=== PATIENT | female | born 1965 | race Caucasian/White ===

== ENCOUNTER 2020-07-28 11:14 | Emergency (ER) | payer OTHER ==
[2020-07-28] MEDS ORDERED: Ondansetron 4 MG/2 ML SDV IVPUSH ONE (11:56)
[2020-07-28] MEDS ORDERED: Ketorolac 30 MG/ML SDV IVPUSH ONE (11:56)
[2020-07-28] MEDS ORDERED: Pantoprazole 40 MG Vial IVPUSH ONE (11:58)
[2020-07-28] MEDS ORDERED: Sodium Chloride 0.9% 1,000 ML IV SCH ×2 (12:00→13:00)
--- NOTE | 2020-07-28 13:03 | EDM.PDOC ---
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, missed work yesterday, off today lives with who is working today and is not ill here with neighbor 2d ago pt awoke at 4a with n/v, was so lightheaded she crawled to the bathroom has continued with n/v/lightheaded, not had anything to eat or drink in past 2d had loose stools for 1d, then only one formed BM today, does not know the color as she has been too dizzy to look, she crawled to bathroom again today denies pain PSH: c/s no prior sxs, no prior GI problems drinks 4 beers/day, no THC, no street drugs - Related Data Allergies Allergy/AdvReac Type Severity Reaction Status Date / Time No Known Allergies Allergy Verified 07/28/20 11:33 Home Meds: Home Meds Ondansetron [Ondansetron ODT] 4 mg PO Q4H PRN #8 tab.rapdis 07/28/20 [Rx] Past Medical History Cardiovascular History: Reports: High Cholesterol, Hypertension [employer]ERSON History: Reports: Other [employer]ERSON History: Musculoskeletal History: Reports: Gout Oncologic (Cancer) History: Reports: Other (See Below) Other Oncologic History: tongue Dermatologic History: Reports: Other (See Below) Other Dermatologic History: ingrown hairs - Infectious Disease History Infectious Disease History: Reports: Chicken Pox, Measles, Mumps - Past Surgical History GI Surgical History: Reports: Colonoscopy, EGD Oncologic Surgical History: Reports: Other (See Below) Other Oncologic Surgeries/Procedures: 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 Denies: Fever, Chills, Night Sweats, Diaphoresis HEENT: Reports: No Symptoms Respiratory: Reports: No Symptoms Cardiovascular: Reports: No Symptoms Endocrine: Reports: No Symptoms GI/Abdominal: Reports: Diarrhea, Nausea, Vomiting, Other (says she is hungry now). Denies: Abdominal Pain : Reports: No Symptoms Musculoskeletal: Reports: No Symptoms Skin: Reports: No Symptoms Neurological: Reports: No Symptoms Psychiatric: Reports: No Symptoms Hematologic/Lymphatic: Reports: No Symptoms Immunologic: Reports: No Symptoms ED EXAM, GI/ABD - Physical Exam Exam: See Below Exam Limited By: No Limitations General Appearance: Alert, WD/WN, No Apparent Distress Ears: Normal Canal Nose: Normal Inspection, Normal Mucosa, No Blood Throat/Mouth: Normal Inspection, Normal Lips, Normal Teeth, Normal Voice Head: Atraumatic, Normocephalic Neck: Normal Inspection, Supple, Non-Tender, Full Range of Motion Respiratory/Chest: No Respiratory Distress, Lungs Clear Cardiovascular: Regular Rate, Rhythm, No Edema, No Murmur GI/Abdominal Exam: Normal Bowel Sounds, Soft, Non-Tender, No Distention Back Exam: Normal Inspection Extremities: Normal Inspection, Normal Range of Motion, Non-Tender, No Pedal Edema, Other (skin turgor minimally dec'd) Neurological: Alert, Oriented, CN II-XII Intact, Normal Cognition, Normal Gait, No Motor/Sensory Deficits Psychiatric: Normal Affect, Normal Mood Skin Exam: Warm, Dry, Intact, Normal Color, No Rash Lymphatic: No Adenopathy Course - Vital Signs Last Recorded V/S: Last Vital Signs Temp 36.8 C 07/28/20 11:14 Pulse 57 L 07/28/20 11:14 Resp 18 07/28/20 11:14 BP 160/93 H 07/28/20 11:14 Pulse Ox 100 07/28/20 11:14 - Orders/Labs/Meds Orders: Active Orders 24 hr Category Date Time Status EKG Documentation Completion [RC] ASDIRECTED Care 07/28/20 11:57 Ordered Orthostatic Vital Signs [RC] ASDIRECTED Care 07/28/20 12:54 Ordered Sodium Chloride 0.9% [Normal Saline] 1,000 ml Med 07/28/20 12:00 Ordered IV ASDIRECTED Sodium Chloride 0.9% [Normal Saline] 1,000 ml Med 07/28/20 13:00 Ordered IV ASDIRECTED EKG 12 Lead [EK] Routine Ther 07/28/20 11:56 Ordered Medication Orders Sodium Chloride (Normal Saline) 1,000 mls @ 999 mls/hr IV ASDIRECTED JONATHAN Last Admin: 07/28/20 12:00 Dose: 999 mls/hr Documented by: TAMMY Sodium Chloride (Normal Saline) 1,000 mls @ 999 mls/hr IV ASDIRECTED JONATHAN Last Admin: 07/28/20 13:03 Dose: 999 mls/hr Documented by: TAMMY Labs: Laboratory Tests 07/28/20 07/28/20 07/28/20 Range/Units 11:40 11:40 11:40 WBC 9.6 (3.0-10.3) x10-3/uL RBC 4.12 (3.60-5.20) x10(6)uL Hgb 13.3 (11.4-15.5) g/dL Hct 39.9 (34.2-48.2) % MCV 96.8 (76.7-100.5) fL MCH 32.4 (23.9-33.9) pg MCHC 33.4 (31.9-34.8) g/dL RDW 12.6 (12.3-16.5) % Plt Count 325 (151-488) x10(3)uL MPV 7.8 (7.1-12.4) fL Neut % (Auto) 60.8 (30.8-76.2) % Lymph % (Auto) 32.0 (18.4-52.1) % [place] % (Auto) 5.4 (4.4-15.7) % Eos % (Auto) 0.7 (0.6-8.1) % Baso % (Auto) 1.1 (0.2-1.5) % Neut # (Auto) 5.8 (1.5-6.3) x10-3/uL Lymph # (Auto) 3.1 (1.0-4.4) x10-3/uL [place] # (Auto) 0.5 (0.3-1.0) x10-3/uL Eos # (Auto) 0.1 (0.0-0.8) x10-3/uL Baso # (Auto) 0.1 (0.0-0.1) x10-3/uL Sodium 139 (135-145) mmol/L Potassium 3.6 (3.5-5.3) mmol/L Chloride 98 L (100-110) mmol/L Carbon Dioxide 29 (21-32) mmol/L BUN 6 L (7-18) mg/dL Creatinine 0.6 (0.55-1.02) mg/dL Est Cr Clr Drug Dosing 84.78 mL/min Estimated GFR (MDRD) > 60 (>60) BUN/Creatinine Ratio 10.0 (9-20) Glucose 102 (80-116) mg/dL Calcium 9.6 (8.6-10.2) mg/dL Magnesium 2.0 (1.8-2.5) mg/dL Total Bilirubin 0.5 (0.1-1.3) mg/dL AST 19 (5-25) IU/L ALT 28 (12-36) U/L Alkaline Phosphatase 92 (56-112) IU/L Troponin I 5.9 (4.0-60.3) pg/mL C-Reactive Protein 0.6 (0.5-0.9) mg/dL Total Protein 7.2 (6.0-8.0) g/dL Albumin 3.9 (3.5-5.2) g/dL Globulin 3.3 g/dL Albumin/Globulin Ratio 1.2 Lipase 101 (73-393) U/L Urine Color (YELLOW) Urine Appearance (CLEAR) Urine pH (5.0-6.5) Ur Specific [place] (1.010-1.025) Urine Protein (NEGATIVE) mg/dL Urine Glucose (UA) (NORMAL) mg/dL Urine Ketones (NEGATIVE) mg/dL Urine Occult Blood (NEGATIVE) Urine Nitrite (NEGATIVE) Urine Bilirubin (NEGATIVE) Urine Urobilinogen (NEGATIVE) mg/dL Ur Leukocyte Esterase (NEGATIVE) Urine WBC (0-5) Ur Squamous Epith Cells (NS,R,O) Urine Bacteria (NS) 07/28/20 Range/Units 13:48 WBC (3.0-10.3) x10-3/uL RBC (3.60-5.20) x10(6)uL Hgb (11.4-15.5) g/dL Hct (34.2-48.2) % MCV (76.7-100.5) fL MCH (23.9-33.9) pg MCHC (31.9-34.8) g/dL RDW (12.3-16.5) % Plt Count (151-488) x10(3)uL MPV (7.1-12.4) fL Neut % (Auto) (30.8-76.2) % Lymph % (Auto) (18.4-52.1) % [place] % (Auto) (4.4-15.7) % Eos % (Auto) (0.6-8.1) % Baso % (Auto) (0.2-1.5) % Neut # (Auto) (1.5-6.3) x10-3/uL Lymph # (Auto) (1.0-4.4) x10-3/uL [place] # (Auto) (0.3-1.0) x10-3/uL Eos # (Auto) (0.0-0.8) x10-3/uL Baso # (Auto) (0.0-0.1) x10-3/uL Sodium (135-145) mmol/L Potassium (3.5-5.3) mmol/L Chloride (100-110) mmol/L Carbon Dioxide (21-32) mmol/L BUN (7-18) mg/dL Creatinine (0.55-1.02) mg/dL Est Cr Clr Drug Dosing mL/min Estimated GFR (MDRD) (>60) BUN/Creatinine Ratio (9-20) Glucose (80-116) mg/dL Calcium (8.6-10.2) mg/dL Magnesium (1.8-2.5) mg/dL Total Bilirubin (0.1-1.3) mg/dL AST (5-25) IU/L ALT (12-36) U/L Alkaline Phosphatase (56-112) IU/L Troponin I (4.0-60.3) pg/mL C-Reactive Protein (0.5-0.9) mg/dL Total Protein (6.0-8.0) g/dL Albumin (3.5-5.2) g/dL Globulin g/dL Albumin/Globulin Ratio Lipase (73-393) U/L Urine Color Yellow (YELLOW) Urine Appearance Slightly cloudy (CLEAR) Urine pH 6.0 (5.0-6.5) Ur Specific [place] 1.015 (1.010-1.025) Urine Protein Negative (NEGATIVE) mg/dL Urine Glucose (UA) Normal (NORMAL) mg/dL Urine Ketones 15 H (NEGATIVE) mg/dL Urine Occult Blood Negative (NEGATIVE) Urine Nitrite Negative (NEGATIVE) Urine Bilirubin Negative (NEGATIVE) Urine Urobilinogen Normal (NEGATIVE) mg/dL Ur Leukocyte Esterase Negative (NEGATIVE) Urine WBC 0-5 (0-5) Ur Squamous Epith Cells Few H (NS,R,O) Urine Bacteria Few H (NS) Meds: Medications Generic Name Dose Route Start Last Admin Trade Name Freq PRN Reason Stop Dose Admin Sodium Chloride 1,000 mls @ 999 mls/hr 07/28/20 12:00 07/28/20 12:00 Normal Saline IV 999 mls/hr ASDIRECTED JONATHAN Administration Sodium Chloride 1,000 mls @ 999 mls/hr 07/28/20 13:00 07/28/20 13:03 Normal Saline IV 999 mls/hr ASDIRECTED JONATHAN Administration Discontinued Medications Generic Name Dose Route Start Last Admin Trade Name Freq PRN Reason Stop Dose Admin Ketorolac Tromethamine 30 mg 07/28/20 11:56 Toradol IVPUSH 07/28/20 11:57 ONETIME ONE Ondansetron HCl 4 mg 07/28/20 11:56 07/28/20 12:05 Zofran IVPUSH 07/28/20 11:57 4 mg ONETIME ONE Administration Pantoprazole Sodium 80 mg 07/28/20 11:58 Protonix Iv IVPUSH 07/28/20 11:59 ONETIME ONE Departure - Departure Time of Disposition: 14:33 Disposition: Home, Self-Care 01 Condition: Good Clinical Impression: Viral gastroenteritis, Moderate dehydration - Discharge Information *PRESCRIPTION DRUG MONITORING PROGRAM REVIEWED*: Not Applicable *COPY OF PRESCRIPTION DRUG MONITORING REPORT IN PATIENT EDWIN: Not Applicable Prescriptions: Ondansetron [Ondansetron ODT] 4 mg PO Q4H PRN #8 tab.rapdis PRN Reason: Nausea Instructions: Viral Gastroenteritis, Adult, Rehydration, Adult Referrals: Karla Johnson [employer] [Primary Care Provider] - Forms: ED Department Discharge, ED Return to Work/School Form Additional Instructions: Increase fluids. Rest today and tomorrow. For nausea, take ondansetron ODT 4 mg 1 tab under the tongue every 4-6 hours as needed. Avoid heavy or fatty food today and tomorrow. May return to work in 2 days. See your doctor in 6 days for further recommendations. Return to ED if you are feeling worse. Sepsis Event Note (ED) - Evaluation Sepsis Screening Result: No Definite Risk - Focused Exam Vital Signs: Vital Signs Temp Pulse Resp BP Pulse Ox 07/28/20 11:14 36.8 C 57 L 18 160/93 H 100 - My Orders Last 24 Hours: My Active Orders 07/28/20 11:56 EKG 12 Lead [EK] Routine 07/28/20 11:57 EKG Documentation Completion [RC] ASDIRECTED 07/28/20 12:00 Sodium Chloride 0.9% [Normal Saline] 1,000 ml IV ASDIRECTED 07/28/20 12:54 Orthostatic Vital Signs [RC] ASDIRECTED 07/28/20 13:00 Sodium Chloride 0.9% [Normal Saline] 1,000 ml IV ASDIRECTED - Assessment/Plan Last 24 Hours: My Active Orders 07/28/20 11:56 EKG 12 Lead [EK] Routine 07/28/20 11:57 EKG Documentation Completion [RC] ASDIRECTED 07/28/20 12:00 Sodium Chloride 0.9% [Normal Saline] 1,000 ml IV ASDIRECTED 07/28/20 12:54 Orthostatic Vital Signs [RC] ASDIRECTED 07/28/20 13:00 Sodium Chloride 0.9% [Normal Saline] 1,000 ml IV ASDIRECTED
== END 2020-07-28 14:51 | disposition home or self-care (01) ==
LOC: FB.ED 11:14
DX: A08.4 Viral intestinal infection, unspecified (principal); E86.0 Dehydration; F17.210 Nicotine dependence, cigarettes, uncomplicated; I10 Essential (primary) hypertension
CPT/HCPCS: 80053; 81001; 83690; 83735; 84484; 85025; 86140; 93005; 96374; 99284; J2405; J7030